=== PATIENT | male | born 2000 | race Two or more races ===

== ENCOUNTER 2024-10-24 00:17 | Emergency (ER) | payer SELFPAY ==
--- NOTE | 2024-10-24 00:34 | XR_ITS ---
[facility] [id number] Patient Name: ALEXUS VAIL MRN: [id number] date: 2000 Sex: M Assigned Patient Location: ER Current Patient Location: ED.MAIN Accession/Order Number: [id number] Exam Date: 10/24/2024 00:45 Report Date: 10/24/2024 01:29 At the request of: ASHISH KEEN Procedure: XR abdomen 1V EXAM: XR abdomen 1V HISTORY: intermittent pain COMPARISON: None. TECHNIQUE: 2 supine views of abdomen and pelvis submitted. FINDINGS/IMPRESSION: Lung bases are cut off. Normal bowel gas pattern with moderate stool and air from cecum to rectosigmoid. There are a few air-filled small bowel loops in the central mid abdomen which are nondistended. Could reflect mild ileus. Doubt obstruction. Correlate for constipation. No organomegaly. No pathologic abdominal or pelvic calcifications. Psoas shadows are defined. Normal osseous structures and joints. Electronically authenticated by: STEPHAN VALENZUELA Date: 10/24/2024 01:29
[2024-10-24 00:35] VITALS: BP 126/78; PULSE 72; TEMP 37.1; O2SAT 99; BMI 23.7
--- NOTE | 2024-10-24 00:40 | PC.NURSE ---
this patient complains of upper abdomen and lower back pain onset 2 weeks ago. this patient rates his abdomen pain at 4/10 dull. this patient denies any any recent falls, injury or trauma to cause this pain. denies any nausea or vomiting, fever, chills
[2024-10-24 01:02] LABS: Bilirubin Urine NEGATIVE (NEGATIVE); Blood Urine TRACE-I (NEGATIVE); Clarity Urine CLEAR (CLEAR); Color Urine LT. YELLOW (YELLOW); Glucose Urine UA NEGATIVE (NEGATIVE); Ketones Urine NEGATIVE (NEGATIVE); Leukocyte Esterase Urine TRACE (NEGATIVE); Nitrite Urine NEGATIVE (NEGATIVE); Protein Urine NEGATIVE (NEG/TRACE); Specific Gravity Urine 1.015 (1.005-1.025); Urobilinogen Urine 0.2 EU/dL (0.2-1.0)
[2024-10-24 01:13] LABS: Bacteria Urine TRACE #/HPF (NONE SEEN); Mucus Urine TRACE (NONE SEEN); RBC Urine 0-2 #/HPF (0-2); Squamous Epithelial Cell Urine NONE SEEN #/LPF (NONE/RARE)
[2024-10-24 01:14] LABS: Cast Seen? NONE SEEN #/LPF (NONE SEEN); Crystals Seen? None Seen #/HPF (None Seen); Urine Culture Indicated YES
[2024-10-24 01:19] VITALS: BP 119/65; PULSE 61; TEMP 36.8; O2SAT 98
--- NOTE | 2024-10-24 01:28 | ED.GENADUL1 ---
HPI HPI - General Adult General Chief complaint: Abdominal Pain Stated complaint: ABDOMINAL PAIN Time Seen by Provider: 10/24/24 00:34 Source: patient Mode of arrival: walk-in Limitations: no limitations History of Present Illness HPI narrative: Patient is a 24-year-old male who is presenting to the ER with chief complaint of intermittent abdominal pain for the past 2 weeks. Patient states he normally has a bowel movement daily, he is not having hard stool or hard rocks. Patient has no nausea or vomiting. Patient is with his girlfriend. Patient speaks partial [place]. Patient is from [facility]. 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 Patient has no urinary frequency urgency or burning. No fever or chills. Patient had a few hours of pain to his upper Abdomen: There was consistent so he finally came into the ER tonight. Pain has resolved by the time patient arrived to the ER. No rash. No trauma. No acute complaints. All systems are negative except as noted/marked. All systems reviewed and otherwise negative. Nurses note and vital signs reviewed and patient is not hypoxic. General: The patient appears well and in no apparent distress. Patient is resting comfortably on cart. Patient is not toxic, lethargic, or listless Skin: Warm, dry, no pallor noted. There is no rash noted. No petechiae, purpura. Head: Normocephalic, atraumatic Eye: Normal conjunctiva, no drainage, EOMI. PERRL Ears, Nose, Mouth, and Throat: oral mucosa is moist. Nares patent. Mouth without vesicles. Cardiovascular: Regular Rate and Rhythm, no murmur, gallop, rub Respiratory: Patient is in no distress, no accessory muscle use, lungs are clear to auscultation, no wheezing, rales or rhonchi Back: non-tender, no CVA tenderness bilaterally to percussion. No CT LS midline pain GI: Mild midepigastric tenderness to palpation, no peritoneal signs, no flank pain bilateral, otherwise no tenderness to palpation, no masses appreciated. No rebound, guarding, or rigidity noted. No distention Musculoskeletal: Patient has full range of motion of all of the extremities, no motor, sensory, or focal neurological deficits Neurological: A&O x4, normal speech Psychiatric: Cooperative Related Data Home Medications ?Medication ?Instructions ?Recorded ?Confirmed No Known Home Medications 10/24/24 10/24/24 Previous Rx's ?Medication ?Instructions ?Recorded dicyclomine 20 mg tablet 20 mg PO TID PRN abdominal pain #7 10/24/24 tabs ondansetron 4 mg disintegrating 4 mg PO Q4H PRN nausea and 10/24/24 tablet vomiting 3 days #6 tabs Allergies Allergy/AdvReac Type Severity Reaction Status Date / Time No Known Drug Allergies Allergy Verified 10/24/24 00:35 Opioid HPI Opioid Management Most Recent Opioid Data: Last Pain Scale 4 10/24/24 00:39 10/24/24 PFSH PFSH Social History Little interest or pleasure in doing things: not at all Feeling down, depressed, or hopeless: not at all Exam Constitutional Vital Signs, click to edit/add: Last Vital Signs Temp 98.3 F 10/24/24 01:19 Pulse 61 10/24/24 01:19 Resp 18 10/24/24 01:19 BP 119/65 10/24/24 01:19 Pulse Ox 98 10/24/24 01:19 O2 Del Method Room Air 10/24/24 00:35 Course Vital Signs Vital signs: Vital Signs Temperature 98.8 F 10/24/24 00:35 Pulse Rate 72 10/24/24 00:35 Respiratory Rate 18 10/24/24 00:35 Blood Pressure 126/78 10/24/24 00:35 Pulse Oximetry 99 10/24/24 00:35 Oxygen Delivery Method Room Air 10/24/24 00:35 Temperature 98.3 F 10/24/24 01:19 Pulse Rate 61 10/24/24 01:19 Respiratory Rate 18 10/24/24 01:19 Blood Pressure 119/65 10/24/24 01:19 Pulse Oximetry 98 10/24/24 01:19 Oxygen Delivery Method Room Air 10/24/24 00:35 Medical Decision Making MDM Narrative Medical decision making narrative: Patient urine shows no acute findings, patient has trace leuk esterase, 5-10 white blood cells, trace bacteria. Urine cultures pending. Education on gas and stool constipation was done at bedside and on discharge paperwork. Education on constipation, gallbladder disease, appendicitis, kidney stones and UTIs were discussed at bedside in the discharge paperwork. Patient was given a prescription for Zofran and Bentyl to use as needed. Patient will follow-up with and needs to establish a PCP of the health department. No question at discharge. Patient has minimal to no pain while he has been in the ER this evening. Lab Data Labs: Lab Results 10/24/24 Range/Units 00:48 Urine Color Lt. yellow (YELLOW) Urine Clarity Clear (CLEAR) Urine pH 6.0 (5.0-9.0) Ur Specific [place] 1.015 (1.005-1.025) Urine Protein Negative (NEG/TRACE) mg/dL Urine Glucose (UA) Negative (NEGATIVE) mg/dL Urine Ketones Negative (NEGATIVE) mg/dL Urine Occult Blood Trace-i (NEGATIVE) Urine Nitrite Negative (NEGATIVE) Urine Bilirubin Negative (NEGATIVE) Urine Urobilinogen 0.2 (0.2-1.0) EU/dL Ur Leukocyte Esterase Trace A (NEGATIVE) Urine RBC 0-2 (0-2) #/HPF Urine WBC 5-10 A (NONE SEEN) #/HPF Ur Squamous Epith Cells None seen (NONE/RARE) #/LPF Urine Crystals None seen (None Seen) #/HPF Urine Bacteria Trace A (NONE SEEN) #/HPF Urine Casts None seen (NONE SEEN) #/LPF Urine Mucus Trace A (NONE SEEN) Ur Culture Indicated? Yes Discharge Plan Discharge Chief Complaint: Abdominal Pain Clinical Impression: Abdominal pain, Constipation Patient Disposition: Home, Self-Care Time of Disposition Decision: 01:28 Condition: Fair Prescriptions / Home Meds: New dicyclomine 20 mg tablet 20 mg PO TID PRN (Reason: abdominal pain) Qty: 7 0RF ondansetron 4 mg tablet,disintegrating 4 mg PO Q4H PRN (Reason: nausea and vomiting) 3 Days Qty: 6 0RF No Action No Known Home Medications Print Language: [place] Instructions: Constipation (ED), Abdominal Pain (ED) Additional Instructions: Continue increase fluids at home, water, Gatorade, Powerade Use Zofran as needed for nausea vomiting, use Bentyl as needed for abdominal cramping Alternate Tylenol and either Motrin, Advil, or ibuprofen every 4 hours to help with pain. Maximum dose of Tylenol is 3000 mg a day. Maximum dose of either Motrin, Advil, or ibuprofen is 2400 mg a day. PCP list has been given to you, establish a PCP or the health department Return back to the ER if intractable nausea, vomiting, pain. Referrals: Physician,Non-Staff, [Primary Care Provider] - 1 week
--- NOTE | 2024-10-24 01:32 | PC.NURSE ---
i gave verbal and paper discharge orders along with 2 e-scripts to this patient and he voices yes to understanding these. at time of discharge this patient voices no concerns and shows no signs of distress
[2024-10-24 14:48] LABS: BOX Test Reference Lab FIRELANDS; BOX Test Sent Out URINE
== END 2024-10-24 01:35 | disposition home or self-care (01) ==
PROVIDERS: Emergency Provider Emergency Medicine
DX: K59.00 Constipation, unspecified (principal); R10.9 Unspecified abdominal pain
CPT/HCPCS: 36415; 74018; 81001; 87086; 87150; 87186; 99284